=== PATIENT | female | born 1985 | race Caucasian/White ===

== ENCOUNTER 2023-11-14 08:00 | Outpatient (CLI) | payer OTHER ==
[2023-11-15 12:39] LABS: BILIRUBIN,URINE NEGATIVE (NEGATIVE); GLUCOSE, URINE (UA) NEGATIVE (NEGATIVE); KETONES,URINE (UA) NEGATIVE (NEGATIVE); LEUKOCYTE ESTERASE, URINE NEGATIVE (NEGATIVE); NITRITE,URINE NEGATIVE (NEGATIVE); OCCULT BLOOD,URINE NEGATIVE (NEGATIVE); PROTEIN,URINE NEGATIVE (NEGATIVE); UROBILINOGEN,URINE 0.2 (NORMAL) E.U./dL (NORMAL)
[2023-11-15 12:40] LABS: CLARITY,URINE CLEAR (CLEAR)
[2023-11-15 13:04] LABS: AMORPHOUS SEDIMENT,UR Few /LPF; BACTERIA,URINE Few /HPF (None Seen); RBC,URINE 0-5 /HPF (0-5); SQUAMOUS EPITHELIAL CELL,UR FEW Squamous (<= Few); WBC,URINE 0-3 /HPF (0-5)
== END 2023-11-14 08:01 | disposition home or self-care (01) ==
LOC: LAB.WC 08:00
PROVIDERS: ATTEND Obstetrics & Gynecology
DX: Z34.80 Encounter for supervision of other normal pregnancy, unspecified trimester (principal)
CPT/HCPCS: 81001; 87086

== ENCOUNTER 2024-06-21 05:07 | Inpatient (IN) ==
[2024-06-21 06:19] LABS: BASOPHILS % (AUTO) 0.2 %; EOSINOPHILS # (AUTO) 0.1 10^3/uL (0.0-0.7); EOSINOPHILS % (AUTO) 1.2 %; HGB - HEMOGLOBIN 12.9 g/dL (12.0-16.0); LYMPHOCYTES # (AUTO) 2.4 10^3/uL (1.5-3.5); LYMPHOCYTES % (AUTO) 24.2 %; MEAN CORPUSCULAR HEMOGLOBIN 30.7 pg (27.0-31.0); MEAN CORPUSCULAR HGB CONC 33.9 g/dL (32.0-36.0); MEAN CORPUSCULAR VOLUME 90.5 fL (81.0-99.0); MONOCYTES # (AUTO) 0.6 10^3/uL (0.0-1.0); MONOCYTES % (AUTO) 5.7 %; NEUTROPHILS # (AUTO) 6.7 10^3/uL (1.5-6.6); PLT - PLATELET COUNT 279 10^3/uL (130-450); RED CELL DISTRIBUTION WIDTH 13.8 % (12.0-15.0); WHITE BLOOD COUNT 9.9 x10^3/uL (4.8-10.8)
[2024-06-21] MEDS: LACTATED RINGERS 1,000 ML IV SCH ×2 (06:36→14:17)
--- NOTE | 2024-06-21 07:12 | HISTORY & PHYSICAL EXAMINATION ---
Admit History Smoking Status: Former smoker Other Maternal History Other Maternal History: Patient is a 39-year-old G2, P1 at 39 weeks 0 days gestation presenting for primary section due to suspected macrosomia. Ultrasound earlier this week was performed showing EFW of 5133 g. Consistent with macrosomia from previous ultrasounds. We discussed the risk and benefits of vaginal delivery versus section in clinic, and after going home and discussing with her partner, decided on primary section.. She has good movement. Denies loss of fluid. No ARNOLD/BV or RUQP. No vaginal bleeding. Denies nausea and vomiting. Denies urinary urgency or dysuria. All other symptoms reviewed and were negative except per HPI. Course Anxiety and Depression: Managing with lifestyle changes. Has never been on medications. Seeing counsellor twice a month. Obesity: Starting BMI 34 -32 weeks US: 05/04/24: EFW 2719g, 99%, AC 99%, -36 wk us 05/29/24 >99%ile with AC > 99%ile, BRENDA 18.2 Initial Labs: Blood type: A+ Antibody screen: Negative CBC: H/H: 12.3/35.6%. Plt: 296 Rubella: Immune Varicella: Reactive HBsAg: Negative Hep C: Nonreactive RPR/AB-EIA: Nonreactive HIV: Nonreactive Gonorrhea/Chlamydia: Negative/negative Aspirin: Taking aspirin A1c/early 1-hour: 5.3 PAP: November 2022 NILM per pt, history of abnormal Pap smears. HSV: Denies in self and partner Genetic testing: NIPT- Negative AFP- Negative COVID: Declines Influenza: given 04/02/24 FAS: Posterior/Fundal, 3VC BRENDA WNL EFW: 583g 89.7%ile Tdap:04/02/24 50 gm OGCT: 97 Breast Pump Rx: given RSV- 05/28/24 3rd trimester CBC: 11.4/34.3/276 RPR: Non reactive GBS: 05/31 Negative Delivery Planning: Contraception: Condoms vs Paragard. She has good movement. Denies loss of fluid. No ARNOLD/BV or RUQP. No vaginal bleeding. Denies nausea and vomiting. Denies urinary urgency or dysuria. All other symptoms reviewed and were negative except per HPI. HPI Current : Current EDU 06/28/24 Gestation 39 Weeks and 0 Days Para 1 Vital Signs Temperature 36.7 C 06/21/24 05:26 Pulse Rate 103 H 06/21/24 05:26 Respiratory Rate 19 06/21/24 05:26 Blood Pressure 120/77 06/21/24 05:26 NST Procedure NST Procedure: NST Procedure Start Date 06/21/24 Start Time 05:30 Stop Time 06:05 Vibroacoustic Stimulation Used No Patient States Movement Yes Meds/Allgy Home Medications Ambulatory Orders Medication Instructions Recorded Confirmed vits no.126-ferrous fum tab PO 12/15/23 06/19/24 28 mg iron-folic acid 800 mcg tablet (Classic ) aspirin 81 mg tablet,delayed 81 mg PO QDAY 03/07/24 06/19/24 release ferrous sulfate 27 mg iron tablet 27 mg PO QDAY 03/07/24 06/19/24 famotidine 20 mg tablet 20 mg PO BID #60 tabs 04/16/24 06/19/24 simethicone 125 mg chewable tablet 125 mg PO ONCE PRN 06/07/24 06/19/24 (Gas-X Extra Strength) Allergies Allergies Allergy/AdvReac Type Severity Reaction Status Date / Time No Known Drug Allergies Allergy Verified 06/07/24 09:49 PFSH Active Problems All Active Problems (Updated 06/21/24 @ 07:27 by Timmy Santana MD) Large for dates complicating in third trimester, antepartum (Acute) Obesity affecting in third trimester (Acute) Choroid plexus cyst of fetus affecting care of mother, antepartum (Acute) BMI 34.0-34.9,adult (Acute) Anxiety (Acute) Depression (Acute) Supervision of normal (Acute) Medical History Medical History (Updated 06/21/24 @ 07:27 by Timmy Santana MD) Overactive bladder PTSD (post-traumatic stress disorder) Surgical History Surgical History History of cholecystectomy Family History Family History Mother Thyroid disorder Colon cancer Father Kidney disease High blood pressure Diabetes Sister Thyroid disorder Aunt Diabetes Thyroid disorder Uncle Heart disease Grandmother Diabetes Thyroid disorder Social History Social History (Updated 12/15/23 @ 12:39 by Steffany Harrell MA) Smoking Status: Former smoker Number of Years Smoked: 10 How many cigarettes a day do you smoke? (20 cigarettes=1 Pk): 20 Do you dip or chew tobacco?: No ETOH Use: None Substance Use: denies use Review of Systems Status of ROS: 10 or more systems reviewed and unremarkable except as noted in history and below Physical Abdominal Exam Vital Signs: Temp Pulse Resp BP 36.7 C 103 H 19 120/77 06/21/24 05:26 06/21/24 05:26 06/21/24 05:26 06/21/24 05:26 Other Notes Labor Progress Note/Additional Text: General: Alert, oriented, no acute distress Head: Normal cephalic atraumatic Eyes: PERRLA, extraocular motions intact. Respiratory: Normal rate of respiration. No accessory muscle use, normal respiratory effort. Cardiovascular: Regular rate and rhythm Abdomen: Gravid, nontender, nondistended Extremities: Normal range of motion Neuro: Oriented x3. Normal movements Psych: Appropriate mood and affect. Normal judgment and insight FHT: 140 bpm baseline, moderate variability, accelerations present, no decelerations. Plan for Labor Plan For Labor I expect patient to be DC'd or transferred within 96 hours.: Yes Conclusion/Plan Problem List (1) Large for dates complicating in third trimester, antepartum: Plan: Plan for primary section. 2 g cefazolin preoperatively. section was recommended. Risks, benefits and alternatives were discussed including but not limited to infection, bleeding that may require blood products or hysterectomy for life saving measures, injury to surrounding organs including but not limited to bowel, bladder, ureters, tubes and ovaries and/or the baby. Should injury occur it could require longer/additional surgery to repair. The patient stated understanding and desired to proceed. All questions were answered posed by patient. Qualifiers: Fetus number: single or unspecified fetus Qualified Code(s): O36.63X0 - Maternal care for excessive growth, third trimester, not applicable or unspecified (2) Obesity affecting in third trimester: Plan: Discussed surgical risks. Qualifiers: Obesity type affecting : other obesity due to excess calories Qualified Code(s): O99.213 - Obesity complicating , third trimester; E66.09 - Other obesity due to excess calories (3) Choroid plexus cyst of fetus affecting care of mother, antepartum: Plan: Found on early ultrasound, not commented on subsequent ultrasounds. Qualifiers: Fetus number: single or unspecified fetus Qualified Code(s): O35.03X0 - Maternal care for (suspected) central nervous system malformation or damage in fetus, choroid plexus cysts, not applicable or unspecified (4) BMI 34.0-34.9,adult: Plan: Discussed surgical risks. (5) Anxiety: Plan: Close management . Lab Results 06/21/24 05:55
[2024-06-21] MEDS ORDERED: miSOPROStoL 200 MCG TABLET ONE (07:13)
[2024-06-21] MEDS: ACETAMINOPHEN 500 MG TABLET PO ONE (07:14)
[2024-06-21] MEDS ORDERED: METHYLERGONOVINE 0.2 MG/ML VIAL ONE (07:14)
[2024-06-21] MEDS ORDERED: PHENYLEPHRINE 10 MG/ML VIAL ONE (07:14)
[2024-06-21] MEDS ORDERED: CARBOPROST TROMETHAMINE 250 MCG/ML VIAL IM ONE (07:14)
[2024-06-21] MEDS: CITRIC ACID/SODIUM CITRATE 15 ML UDC PO ONE (07:15)
[2024-06-21] MEDS ORDERED: fentaNYL 100 MCG/2 ML VIAL ONE (07:15)
[2024-06-21] MEDS ORDERED: MORPHINE PF 5 MG/10 ML VIAL ONE (07:15)
[2024-06-21] MEDS ORDERED: OXYTOCIN/SODIUM CHLORIDE 500 ML IV ONE (07:16)
[2024-06-21] MEDS ORDERED: ONDANSETRON 4 MG/2 ML VIAL ONE (08:38)
[2024-06-21] MEDS ORDERED: KETOROLAC 30 MG/ML VIAL ONE (08:38)
[2024-06-21] MEDS ORDERED: MORPHINE PF 5 MG/10 ML VIAL IT ONE (08:49)
[2024-06-21] MEDS ORDERED: fentaNYL 100 MCG/2 ML VIAL IT ONE (08:49)
[2024-06-21] MEDS: LACTATED RINGERS 500 ML IV ONE (09:07)
[2024-06-21] MEDS ORDERED: LACTATED RINGERS 1,000 ML ONE (09:16)
[2024-06-21] MEDS ORDERED: ePHEDrine 50 MG/ML VIAL IVP ONE (09:18)
[2024-06-21] MEDS ORDERED: ONDANSETRON ODT 4 MG TABLET TL PRN (09:27)
[2024-06-21] MEDS ORDERED: OXYTOCIN/SODIUM CHLORIDE 500 ML IV PRN (09:27)
--- NOTE | 2024-06-21 09:27 | OPERATIVE REPORT ---
Operative Report General Admit Date: 06/21/24 Procedure Data: Operation Date: 06/21/24 07:30 Proposed Procedures p Section(Not Applicable) - Timmy Santana MD Actual Procedures p Section(Not Applicable) - Timmy Santana MD Pre-Op Diagnosis: suspected macrosomia Anesthesia Type Spinal Case Staff Anesthesia Provider: Nessa Brewer Co-surgeon: Greer Romero Case Times Into Recovery: 06/21/24 09:07 Procedure Start: 06/21/24 08:12 Procedure End: 06/21/24 08:57 Time out: 06/21/24 08:06 Pre-op diagnosis 39 weeks gestation Suspected macrosomia Obesity Postop diagnosis Same Status post primary low-transverse section Delivery of live ravi . Procedure Note Intake, IV Amount (ml): 900 Estimated Blood Loss (ml): 700 Output, Urine Amount (ml): 50 Pathology: None Findings: Normal-appearing tubes and ovaries. Uterus with increased vascularity and serosal adhesions to the posterior uterus Complications: None Other Other Information/Narrative: section was recommended. Risks, benefits and alternatives were discussed including but not limited to infection, bleeding that may require blood products or hysterectomy for life saving measures, injury to surrounding organs including but not limited to bowel, bladder, ureters, tubes and ovaries and/or the baby. Should injury occur it could require longer/additional surgery to repair. The patient stated understanding and desired to proceed. All questions were answered posed by patient. Prior to being taken to the OR, 2 grams of cefazolin IV was administered. The patient was taken to the operating room where regional anesthesia was found to be adequate. She was then prepared and draped in the usual sterile fashion in the dorsal supine position with a leftward tilt displacing the uterus. Flores was draining to gravity. SCDs were on bilateral lower extremities. Time out was taken. A pfannenstiel skin incision was then made with the scalpel and carried through to the underlying layer of fascia. The fascia was incised in the midline and the incision extended laterally with the Dai scissors. The superior aspect of the facial incision was then grasped with the Jayson clamps, elevated and the underlying rectus muscles dissected off sharply. Attention was then turned to the inferior aspect of this incision which in a similar fashion was grasped, elevated with the Jayson clamps and the rectus muscle dissected off sharply. The rectus muscles were in the midline. The peritoneum identified, and entered blutly. The peritoneal incision was then extended superiorly and inferiorly with good visualization of the bladder. The bladder blade was inserted. The vesicouterine peritoneum was identified, grasped with the pick- ups, and entered sharply with Metzenbaum scissors. This incision was then extended laterally and the bladder flap created digitally. The bladder blade was reinserted. The lower uterine segment was identified and incised in a transverse fashion with the scalpel. The uterine incision was then extended bluntly laterally. Artificial rupture of membranes demonstrated clear fluid. The bladder blade was removed. The fetus was in a cephalic presentation. The infants head delivered atraumatically. The anterior shoulders were delivered followed by the posterior shoulders then the remainder of the body. The infants mouth and nose were bulb suctioned. The umbilical cord was clamped times two and cut. The was handed to the pediatric team. The placenta was removed with gentle traction. Oxytocin was added to the IV fluid and was allowed to run freely. The uterus was exteriorized and cleared of all clots and debris. The uterine incision was inspected and found to be without any extensions and was repaired with 0 Vicryl in a running, locked fashion. A second imbricating layer was performed. Upon inspection, the repaired hysterotomy was found to be hemostatic. As the posterior uterus was clean, we did note hypervascularity and a shaggy serosal edge. We did not notice any adhesions on the bowel, omentum, posterior abdominal wall. There were mild oozing spots, so Surgicel was placed over the area. The uterus was firm and returned to the abdomen. The gutters were cleared of all clots and debris. The muscle layer was examined and found to be hemostatic. The fascia was reapproximated with 0 Vicryl in a running fashion. The subcutaneous tissue was closed with 2-0 Vicryl. The skin was closed in a subcuticular fashion with 4-0 Monocryl. The patient tolerated the procedure well. Sponge, lap and needle counts were correct times three. The patient was taken to the recovery room in stable condition. I appreciate the assistance of Dr. Romero during this procedure, and the assistance in retraction, visualization, dissection, and overall assistance during the case were instrumental to the patient's wellbeing. APGARs: 8/9 weight: Pending
--- NOTE | 2024-06-21 09:27 | ANESTHESIA PROCEDURE NOTE ---
Pre-Anesthesia VS, & Labs Diagnosis Surgical Diagnosis:: macrosomia Procedure Procedure: primary c/s Vitals Vital Signs: Temp Pulse Resp BP 36.7 C 103 H 19 120/77 06/21/24 05:26 06/21/24 05:26 06/21/24 05:26 06/21/24 05:26 NPO NPO: >8 hours Is Patient ?: Yes Lab Results Current Lab Results: Laboratory Tests 06/21/24 05:55: WBC 9.9, RBC 4.20, Hgb 12.9, Hct 38.0, MCV 90.5, MCH 30.7, MCHC 33.9, RDW 13.8, Plt Count 279, MPV 11.0 H, Neut # (Auto) 6.7 H, Lymph # (Auto) 2.4, [place] # (Auto) 0.6, Eos # (Auto) 0.1, Baso # (Auto) 0.0, Absolute Nucleated RBC 0.00, Nucleated RBC % 0.0, Blood Type A POSITIVE, Antibody Screen NEGATIVE Lab results reviewed: Yes 06/21/24 05:55 Meds/Allgy Home Medications Ambulatory Orders Medication Instructions Recorded Confirmed vits no.126-ferrous fum tab PO 12/15/23 06/19/24 28 mg iron-folic acid 800 mcg tablet (Classic ) aspirin 81 mg tablet,delayed 81 mg PO QDAY 03/07/24 06/19/24 release ferrous sulfate 27 mg iron tablet 27 mg PO QDAY 03/07/24 06/19/24 famotidine 20 mg tablet 20 mg PO BID #60 tabs 04/16/24 06/19/24 simethicone 125 mg chewable tablet 125 mg PO ONCE PRN 06/07/24 06/19/24 (Gas-X Extra Strength) Allergies Allergies Allergy/AdvReac Type Severity Reaction Status Date / Time No Known Drug Allergies Allergy Verified 06/07/24 09:49 PFSH Active Problems All Active Problems Large for dates complicating in third trimester, antepartum (Acute) Obesity affecting in third trimester (Acute) Choroid plexus cyst of fetus affecting care of mother, antepartum (Acute) BMI 34.0-34.9,adult (Acute) Supervision of normal (Acute) Depression (Acute) Anxiety (Acute) Medical History Medical History Overactive bladder PTSD (post-traumatic stress disorder) Surgical History Surgical History History of cholecystectomy Family History Family History Mother Thyroid disorder Colon cancer Father Kidney disease High blood pressure Diabetes Sister Thyroid disorder Aunt Diabetes Thyroid disorder Uncle Heart disease Grandmother Diabetes Thyroid disorder Social History Social History (Updated 12/15/23 @ 12:39 by Steffany Harrell MA) Smoking Status: Former smoker Number of Years Smoked: 10 How many cigarettes a day do you smoke? (20 cigarettes=1 Pk): 20 Do you dip or chew tobacco?: No ETOH Use: None Substance Use: denies use Anesthesia Exam (Expanded) Exam General: Alert, Oriented x3 and Cooperative Dental: WNL Mouth Openin Fingerbreadth Neck Mobility: Normal Mallampati classification: II Exam Exam Vital Signs: Vital Signs x48h Temp Pulse Resp BP 06/21/24 05:26 36.7 C 103 H 19 120/77 Plan Plan Anesthesia Type: Spinal Consent for Procedure(s) Verified and Reviewed: Yes Code Status: Attempt Resuscitation ASA Classification ASA classification: 2-Mild systemic disease Is this case an emergency?: No
[2024-06-21] MEDS ORDERED: NALOXONE 0.4 MG/ML VIAL IVP PRN ×2 (09:29→10:17)
[2024-06-21] MEDS ORDERED: ONDANSETRON 4 MG/2 ML VIAL IVP PRN ×2 (09:29→10:17)
[2024-06-21] MEDS ORDERED: fentaNYL 100 MCG/2 ML VIAL IVP PRN (09:29)
[2024-06-21] MEDS ORDERED: HYDROmorphone 0.5 MG/0.5 ML SYRINGE IVP PRN (09:29)
[2024-06-21] MEDS ORDERED: ATROPINE ABBOJECT 1 MG/10 ML SYRINGE IVP PRN (09:29)
[2024-06-21] MEDS ORDERED: MORPHINE 2 MG/ML CARPUJECT IVP PRN (09:29)
--- NOTE | 2024-06-21 09:52 | ANESTHESIA POST OP EVALUATION ---
Anesthesia Post Eval Post Anesthesia Eval Vitals: Last Vital Signs Temp 36.4 C L 06/21/24 09:49 Pulse 80 06/21/24 09:49 Resp 18 06/21/24 09:49 BP 100/64 06/21/24 09:49 Pulse Ox 99 06/21/24 09:49 CV Function Including HR & BP: Stable Pain Control: Satisfactory Nausea & Vomiting: Negative Mental Status: Baseline Respiratory Status: Airway Patent Hydration Status: Satisfactory Anesthesia Complications: None
[2024-06-21] MEDS ORDERED: LACTATED RINGERS 1,000 ML IV SCH (10:00)
[2024-06-21] MEDS: NALBUPHINE 10 MG/ML AMP IVP PRN (10:55)
--- NOTE | 2024-06-21 12:22 | PHARMACY PROGRESS NOTE ---
Best Possible Medication History Admit Date and Time: 06/21/24 [id number] Home Medications Medication Instructions Recorded Confirmed Type vits no.126-ferrous fum 1 tab PO DAILY 12/15/23 06/21/24 History 28 mg iron-folic acid 800 mcg tablet (Classic ) ferrous sulfate 27 mg iron tablet 27 mg PO DAILY 03/07/24 06/21/24 History Processed by: Pharmacy (Medication reconciliation completed by Pick Pulling Machine OperatorRena) Medications reviewed in ED?: No Medication History completed: Yes Patient Interview: Completed Secondary Source(s): Insurance records [facility] Statement: As the person ultimately responsible for medication therapy, providers are able to order a medication from an existing home medication list in [facility] via the "Reconcile Routine" prior to Confirmation of that medication by sales support rep. Such practice is discouraged except when the physician, in their clinical judgment, deems that a medical need exists for a medication without regard to previous use.
[2024-06-21] MEDS: ceFAZolin (2G) 2 GM in SODIUM CHLORIDE 0.9% MINIBAG 100 ML IV ONE (14:17)
[2024-06-21] MEDS: KETOROLAC 30 MG/ML VIAL IVP SCH (14:24)
[2024-06-21] MEDS: oxyCODONE 5 MG TABLET PO PRN (14:24)
[2024-06-21] MEDS: ACETAMINOPHEN 500 MG TABLET PO SCH (16:44)
[2024-06-21] MEDS: SIMETHICONE CHEW 80 MG TABLET PO PRN (18:40)
[2024-06-22 05:48] LABS: BASOPHILS % (AUTO) 0.3 %; EOSINOPHILS # (AUTO) 0.2 10^3/uL (0.0-0.7); EOSINOPHILS % (AUTO) 1.3 %; HCT - HEMATOCRIT 34.6 % (37.0-47.0); HGB - HEMOGLOBIN 11.4 g/dL (12.0-16.0); LYMPHOCYTES # (AUTO) 1.9 10^3/uL (1.5-3.5); LYMPHOCYTES % (AUTO) 15.3 %; MEAN CORPUSCULAR HEMOGLOBIN 30.6 pg (27.0-31.0); MEAN CORPUSCULAR HGB CONC 32.9 g/dL (32.0-36.0); MEAN PLATELET VOLUME 10.4 fL (7.9-10.8); MONOCYTES # (AUTO) 0.5 10^3/uL (0.0-1.0); MONOCYTES % (AUTO) 4.1 %; NEUTROPHILS # (AUTO) 9.7 10^3/uL (1.5-6.6); NEUTROPHILS % (AUTO) 78.5 %; PLT - PLATELET COUNT 228 10^3/uL (130-450); RED BLOOD COUNT 3.72 10^6/uL (4.20-5.40); RED CELL DISTRIBUTION WIDTH 13.9 % (12.0-15.0); WHITE BLOOD COUNT 12.3 x10^3/uL (4.8-10.8)
[2024-06-22] MEDS: IBUPROFEN 600 MG TABLET PO SCH (09:23)
[2024-06-22] MEDS: DOCUSATE SODIUM 100 MG CAPSULE PO SCH (09:24)
--- NOTE | 2024-06-22 17:35 | PROVIDER PROGRESS NOTE ---
Subjective Subjective Subjective: Subjective Patient reports she is doing well. Lochia appropriate. Denies heavy bleeding. Ambulating. Pelvic and abdominal pain well-controlled. Tolerating oral intake. Diet: Regular. Voiding without difficulty. Passing flatus. Denies BM. Patient is bonding with baby in room And expressing some but bottle feeding at this time. Denies feeling lightheaded, dizzy or excessively fatigued. Objective General: Alert, oriented, no apparent distress. Cardiovascular: Regular rate. Regular rhythm. Lungs: No increased work of breathing. Abdomen: Uterus firm. Below umbilicus. No guarding or rebound. Extremities: No pain on palpation. No cords palpated. Distal pulses intact. Incision: Clean, dry, and intact. Current Medications Current Medications Current Medications: Current Medications Generic Name Dose Route Start Last Admin Trade Name Freq PRN Reason Stop Dose Admin Acetaminophen 1,000 mg 06/21/24 12:00 06/22/24 12:09 Acetaminophen 500 Mg Tablet PO 1,000 mg Q6HR TAMARA Administration Docusate Sodium 100 mg 06/22/24 09:00 06/22/24 09:24 Docusate Sodium 100 Mg Capsule PO 100 mg DAILY TAMARA Administration Oxytocin/Sodium Chloride 500 mls @ 999 mls/hr 06/21/24 09:27 Pitocin/Sodium Chloride IV PRN PRN POST- HEMORR PREVENTION Protocol 999 MILLIUNIT/MIN Ibuprofen 600 mg 06/22/24 09:20 06/22/24 16:13 Ibuprofen 600 Mg Tablet PO 600 mg Q6HR TAMARA Administration Ondansetron HCl 4 mg 06/21/24 09:27 Ondansetron Odt 4 Mg Tablet TL Q4HR PRN Nausea / Vomiting Oxycodone HCl 5 mg 06/21/24 09:27 06/22/24 15:03 Oxycodone 5 Mg Tablet PO 5 mg Q4HR PRN Administration Moderate Pain (Level 4-6) Simethicone 80 mg 06/21/24 09:27 06/22/24 16:13 Simethicone Chew 80 Mg Tablet PO 80 mg TID PRN Administration Gas Objective Vital Signs/Intake & Output Vital Signs: Vital Signs x48h Temp Pulse Resp BP Pulse Ox 06/22/24 15:19 36.5 C 84 16 103/69 97 06/22/24 12:10 37.0 C 89 17 103/71 99 Intake & Output: Intake & Output 06/19/24 06/20/24 06/21/24 06/22/24 23:59 23:59 23:59 23:59 Intake Total 6300 / 6300 650 / 650 Output Total 2420 / 2420 600 / 600 Balance 3880 / 3880 50 / 50 Weight (kg) 231 lb 0.006 oz Lab Results 06/22/24 05:39 Other Labs: Lab Results x24hrs 06/22/24 Range/Units 05:39 WBC 12.3 H (4.8-10.8) x10^3/uL RBC 3.72 L (4.20-5.40) 10^6/uL Hgb 11.4 L (12.0-16.0) g/dL Hct 34.6 L (37.0-47.0) % MCV 93.0 (81.0-99.0) fL MCH 30.6 (27.0-31.0) pg MCHC 32.9 (32.0-36.0) g/dL RDW 13.9 (12.0-15.0) % Plt Count 228 (130-450) 10^3/uL MPV 10.4 (7.9-10.8) fL Neut # (Auto) 9.7 H (1.5-6.6) 10^3/uL Lymph # (Auto) 1.9 (1.5-3.5) 10^3/uL [place] # (Auto) 0.5 (0.0-1.0) 10^3/uL Eos # (Auto) 0.2 (0.0-0.7) 10^3/uL Baso # (Auto) 0.0 (0.0-0.1) 10^3/uL Absolute Nucleated RBC 0.00 x10^3/uL Nucleated RBC % 0.0 /100WBC Assessment/Plan Problem List (1) care and examination of lactating mother: Impression: Routine care. Encourage breast-feeding. Ambulate without problem. Doing very well anticipate discharge tomorrow. (2) care following delivery: Impression: Routine postoperative care. Anticipate discharge tomorrow.
--- NOTE | 2024-06-23 10:41 | Discharge Summary ---
"Discharge Summary Admit Date: 06/21/24 Discharge Date: 06/23/24 Discharging Provider: Timmy Santana MD Code Status: Attempt Resuscitation DIAGNOSES Admission Diagnoses: 39 weeks gestation Suspected macrosomia Discharge Diagnoses with Status of Each Condition: Delivery of live ravi Status post primary low-transverse section HPI History of Present Illness: Subjective Patient reports she is doing well. Lochia appropriate. Denies heavy bleeding. Ambulating. Pelvic and abdominal pain well-controlled. Tolerating oral intake. Diet: Regular. Voiding without difficulty. Passing flatus. Denies BM. Patient is bonding with baby in room Breast feeding going well. Denies feeling lightheaded, dizzy or excessively fatigued. Objective General: Alert, oriented, no apparent distress. Cardiovascular: Regular rate. Regular rhythm. Lungs: No increased work of breathing. Abdomen: Uterus firm. Below umbilicus. No guarding or rebound. Extremities: No pain on palpation. No cords palpated. Distal pulses intact. Incision: Clean, dry, and intact. CONSULTS | PROCEDURES Consultations: Anesthesia: Spinal for section Procedures: Low-transverse section HOSPITAL COURSE Hospital Course: Patient had an admission for scheduled section for suspected macrosomia. She had an unremarkable section and a good recovery course. She felt well and was discharged on postoperative day 2 with her . ALLERGIES Allergies Allergy/AdvReac Type Severity Reaction Status Date / Time No Known Drug Allergies Allergy Verified 06/22/24 07:46 MEDICATIONS Ambulatory Orders Medication Instructions Recorded Confirmed vits no.126-ferrous fum 1 tab PO DAILY 12/15/23 06/21/24 28 mg iron-folic acid 800 mcg tablet (Classic ) ferrous sulfate 27 mg iron tablet 27 mg PO DAILY 03/07/24 06/21/24 acetaminophen 500 mg tablet 1,000 mg (2 x 500 mg) PO Q6HR #60 06/23/24 tabs ibuprofen 600 mg tablet 600 mg PO Q6HR #60 tabs 06/23/24 oxycodone 5 mg tablet 5 mg PO Q4H PRN Severe Pain #20 06/23/24 tabs PHYSICAL EXAM AT DISCHARGE Vital Signs: Vital Signs x48h Temp Pulse Resp BP Pulse Ox 06/23/24 08:12 36.6 C 74 15 114/78 99 06/23/24 03:08 36.8 C 88 16 117/69 98 LABS 06/22/24 05:39 FOLLOW UP Follow Up: With [facility] woman's care in 1 to 2 weeks TIME SPENT Time Spent in Discharge (Minutes): 20 Discharge Plan Discharge Patient Disposition: 01 Home, Self Care Medically Cleared Date:: 06/23/24 Prescriptions: New oxycodone 5 mg tablet 5 mg PO Q4H PRN (Reason: Severe Pain) Qty: 20 0RF acetaminophen 500 mg Tablet 1,000 mg PO Q6HR Qty: 60 0RF ibuprofen 600 mg Tablet 600 mg PO Q6HR Qty: 60 0RF Continued Classic 28 mg iron- 800 mcg tablet 1 tab PO DAILY ferrous sulfate 27 mg iron tablet 27 mg PO DAILY Activity Restrictions: Additional Comments Activity Restrictions/Additional Instructions: Ibuprofen 600mg every 6 hours and acetaminophen 1000 mg every 6 hours as needed for pain. You can alternate these so you have a pill every 3 hours. Counseled take oxycodone for breakthrough pain. Print Language: Tristanian Patient Instructions: Depression , C Section Dc"
[2024-06-23 13:01] VITALS: BP 123/70; TEMP 98.1; O2SAT 98
--- NOTE | 2024-06-23 13:59 | Labor Flowsheet ---
Labor Flowsheet Datetime Report Generated by CPN: 06/23/2024 13:59 Datetime: 06/21/2024 11:20 VAGINAL EXAM Membranes Ruptured Date/Time: 06/21/2024 08:18 Membranes Rupture Method: Artificial Amniotic Fluid Color: Clear
== END 2024-06-23 13:35 | disposition home or self-care (01) | DRG 788 ==
LOC: FBP 05:07 → EDSTATUS 07:30
PROVIDERS: ADMIT Obstetrics & Gynecology; ATTEND Obstetrics & Gynecology
DX: F32.A Depression, unspecified; F41.9 Anxiety disorder, unspecified; O36.63X0 Maternal care for excessive fetal growth, third trimester, not applicable or unspecified; O99.214 Obesity complicating childbirth; O99.344 Other mental disorders complicating childbirth; Z87.891 Personal history of nicotine dependence; Z3A.39 39 weeks gestation of pregnancy; O35.03X0 Maternal care for (suspected) central nervous system malformation or damage in fetus, choroid plexus cysts, not applicable or unspecified; E66.09 Other obesity due to excess calories; Z37.0 Single live birth